=== PATIENT | male | born 1990 | race Hispanic/Latino ===

== ENCOUNTER 2021-12-05 14:46 | Outpatient (CLI) | payer BC | END 2021-12-05 14:47 | disposition home or self-care (01) | LOC: ULT 14:46 | PROVIDERS: ATTEND Family Medicine | DX: R10.11 Right upper quadrant pain (principal); K76.0 Fatty (change of) liver, not elsewhere classified | CPT/HCPCS: 76705 ==

== ENCOUNTER 2024-04-02 20:14 | Emergency (ER) | payer BC ==
[~2024-04-02 20:14] MED LIST: Iopamidol 370 76% 100 ML VIAL ONE; Iopamidol-370 76% 500 ML MDV (1 ML CHARGE) ONE
[2024-04-02 21:31] LABS: #Basophils 0.04 10x3/uL (0.0-0.2); %Basophils 0.4 % (0.0-1.0); %Eosinophils 2.4 % (0.0-10.0); %Lymphocytes 33.9 % (21.0-51.0); %Monocytes 6.4 % (0.0-10.0); %Neutrophils 56.4 % (42.0-75.0); Hematocrit 42.9 % (42.0-52.0); Mean Corpuscular HGB CONC 32.6 g/dL (32.0-36.0); Mean Corpuscular Hemoglobin 28.7 pg (27.0-31.0); Mean Corpuscular Volume 88.1 fL (78.0-98.0); Mean Platelet Volume 12.6 fL (7.4-10.4); Platelet Count 242 10x3/uL (130-400); RBC Distribution Width 12.3 % (11.5-14.5); Red Blood Cell (RBC) Count 4.87 mill/uL (4.70-6.10)
[2024-04-02] MEDS ORDERED: Aspirin Chewable 81 MG TAB ONE (21:36)
[2024-04-02 21:53] LABS: ALT (SGPT) 39 U/L (8-55); AST (SGOT) 24 U/L (5-34); Albumin 3.9 g/dL (3.5-5.0); Alkaline Phosphatase 50 U/L (40-110); Anion Gap 15 mmol/L (10-20); BUN (Urea Nitrogen) 11 mg/dL (8.9-20.6); Bilirubin, Total 0.2 mg/dL (0.2-1.2); Calc. Creatinine Clearance 0 mL/min (70-130); Calcium 9.5 mg/dL (7.8-10.44); Carbon Dioxide 28 mmol/L (22-29); Chloride 103 mmol/L (98-107); Estimated GFR 93; Glucose 93 mg/dL (70-105); Protein, Total 7.9 g/dL (6.0-8.3); Sodium 142 mmol/L (136-145)
[2024-04-02 21:57] LABS: Troponin I Less than 0.010 ng/mL (< 0.028)
[2024-04-02] MEDS ORDERED: Acetaminophen 500 MG TAB ONE (22:02)
[2024-04-02] MEDS ORDERED: hydrALAZINE 25 MG TAB ONE (22:06)
[2024-04-03 01:49] LABS: Troponin I Less than 0.010 ng/mL (< 0.028)
== END 2024-04-03 02:15 | disposition home or self-care (01) ==
LOC: ERS 20:14
DX: R07.89 Other chest pain (principal); F17.210 Nicotine dependence, cigarettes, uncomplicated; Z55.6 Problems related to health literacy
CPT/HCPCS: 36415; 71045; 71275; 74174; 80053; 84484; 85025; 93005; Q9967